=== PATIENT | male | born 1970 | race American Indian/Alaskan Native ===

== ENCOUNTER 2018-02-02 17:04 | Emergency (ER) | payer OTHER ==
[~2018-02-02] VITALS: Ht 180.3 cm; Wt 150.8 kg
[2018-02-02 17:17] VITALS: BP 144/56
[2018-02-02 21:10] LABS: ALBUMIN 3.6 G/DL (3.4-5.0); ANION GAP 12 (8-16); BLOOD UREA NITROGEN 20 MG/DL (7-18); BUN/CREATININE RATIO 22.7 (5.4-32.0); CALCIUM 8.5 MG/DL (8.5-10.1); CHLORIDE 108 MMOL/L (99-107); CREATININE 0.88 MG/DL (0.60-1.10); GLUCOSE 93 MG/DL (70-104); POTASSIUM 4.1 MMOL/L (3.5-5.1); SODIUM 145 MMOL/L (135-145); TOTAL CARBON DIOXIDE 24.8 MMOL/L (24-32); eGFR > 90 ML/MIN
[2018-02-02] MEDS ORDERED: COLC1TAB2 PO (21:47)
== END 2018-02-02 21:59 | disposition home or self-care (01) ==
LOC: ER 17:05
DX: R60.0 Localized edema (principal); M10.9 Gout, unspecified; Z79.899 Other long term (current) drug therapy
CPT/HCPCS: 36415; 80048; 84550; 93971; 99285

== ENCOUNTER 2024-10-24 08:41 | Day surgery (SDC) | payer MEDICAID ==
[2024-10-22 14:44] LABS: BASOPHILS # (AUTO) 0.1 X10'3 (0-0.2); BASOPHILS % (AUTO) 0.7 % (0-1); EOSINOPHILS # (AUTO) 0.2 X10'3 (0-0.9); EOSINOPHILS % (AUTO) 3.2 % (0-6); LYMPHOCYTES # (AUTO) 1.8 X10'3 (1.1-4.8); LYMPHOCYTES % (AUTO) 24.4 % (21-51); MEAN CORPUSCULAR HEMOGLOBIN 32.6 PG (27.0-31.0); MEAN CORPUSCULAR HGB CONC 34.1 g/dL (33.0-36.5); MEAN CORPUSCULAR VOLUME 95.7 FL (78-98); MONOCYTES # (AUTO) 0.6 X10'3 (0-0.9); MONOCYTES % (AUTO) 7.8 % (2-12); NEUTROPHILS # (AUTO) 4.6 X10'3 (1.8-7.7); NEUTROPHILS % (AUTO) 63.9 % (42-75); PRE OP HEMATOCRIT 43.6 % (42.0-52.0); PRE OP HEMOGLOBIN 14.8 g/dL (14.0-17.9); PRE OP PLATELET COUNT 186 X10'3 (140-440); PRE OP WHITE BLOOD COUNT 7.2 10'3 (4.8-10.8); RED BLOOD COUNT 4.55 X10'6 (4.70-6.10); RED CELL DISTRIBUTION WIDTH 13.5 % (11.5-14.5)
[2024-10-22 15:15] LABS: ALBUMIN 3.8 G/DL (3.4-5.0); ALKALINE PHOSPHATASE 91 IU/L (46-116); BLOOD UREA NITROGEN 21 MG/DL (7-18); BUN/CREATININE RATIO 31.3 (10.0-20.0); CALCIUM 8.7 MG/DL (8.5-10.1); CHLORIDE 108 MMOL/L (99-107); CREATININE 0.67 MG/DL (0.60-1.10); PRE OP ALT 47 U/L (30-65); PRE OP ANION GAP 7 (8-16); PRE OP AST 31 U/L (10-37); PRE OP BILIRUB, TOTAL 0.5 MG/DL (0.0-1.0); PRE OP GLUCOSE 102 MG/DL (70-104); PRE OP POTASSIUM 4.2 MMOL/L (3.4-5.1); PRE OP SODIUM 142 MMOL/L (135-145); TOTAL CARBON DIOXIDE 27.1 MMOL/L (24-32); TOTAL PROTEIN 7.7 G/DL (6.4-8.2); eGFR > 90 ML/MIN
[~2024-10-24] VITALS: Ht 180.3 cm; Wt 142.1 kg
[2024-10-24] VITALS (15 sets, daily range): BP systolic 109–161; BP diastolic 66–113; PULSE 66–92; RESP 12–19; TEMP 96.7; O2SAT 90–96
[2024-10-24] MEDS: CEFAZOLIN 3GM/DEXTROSE 150mL 150 ML IV ONE (05:30)
[~2024-10-24 08:41] MED LIST: ACET-1008 PO; DOXY-224 PO; ERGO400C PO; IBUP-2417 PO
[2024-10-24] MEDS: famotidine 20mg tablet PO ONE (10:21)
[2024-10-24] MEDS: ringers solution, lacted 1,000 ML IV SCH (10:22)
[2024-10-24] MEDS ORDERED: BUPIVAcaine 2.5mg/ml inj 50ml vial (contains preservative) ONE (10:30)
[2024-10-24] MEDS ORDERED: LIDOcaine 1% 30ml preserv. free vial ONE (10:30)
[2024-10-24] MEDS ORDERED: BUPIVAcaine/PF 2.5mg/ml (0.25%) 10ml vial ONE ×2 (10:30→10:32)
[2024-10-24] MEDS ORDERED: BUPIVACAINE liposomal/PF 13.3 MG/ML 10mL vial IM ONE (10:31)
[2024-10-24] MEDS ORDERED: sevoflurane 250ml liquid IH ONE (12:05)
[2024-10-24] MEDS ORDERED: labetalol 20mg/4ml (5mg/ml) syringe IV PRN (12:15)
[2024-10-24] MEDS ORDERED: meperidine/PF 25mg/ml syringe IV PRN (12:15)
[2024-10-24] MEDS ORDERED: midazolam 1 mg/ML 2ml injection ONE (12:15)
[2024-10-24] MEDS ORDERED: morphine 2 MG/ML inj. syringe IV PRN (12:15)
[2024-10-24] MEDS ORDERED: ondansetron/PF 4mg/2ml inj IV PRN (12:15)
[2024-10-24] MEDS ORDERED: hydrALAZINE 20mg/ml inj. IV PRN (12:15)
[2024-10-24] MEDS ORDERED: morphine 4 MG/ML inj SYRINge IV PRN (12:15)
[2024-10-24] MEDS ORDERED: proCHLORperazine 10 MG/2 ml inj IV PRN (12:15)
[2024-10-24] MEDS ORDERED: meperidine/PF 100mg/ml syringe IV PRN (12:15)
[2024-10-24] MEDS ORDERED: ringers solution, lacted 1,000 ML IV SCH (12:15)
[2024-10-24] MEDS ORDERED: fentaNYL /PF 50mcg/ml 5ml ampule ONE (12:17)
[2024-10-24] MEDS ORDERED: LIDOcaine 2% (20mg/ml) 5ml vial ONE (12:22)
[2024-10-24] MEDS ORDERED: propofol inj 20 ML IV ONE ×2 (12:22)
[2024-10-24] MEDS ORDERED: rocuronium 10mg/ml inj IV ONE (12:22)
[2024-10-24] MEDS ORDERED: dexamethasone sod phosphate 4mg/ml inj. ONE (12:38)
[2024-10-24] MEDS ORDERED: ondansetron/PF 4mg/2ml inj ONE (12:38)
[2024-10-24] MEDS: BUPIVAcaine/PF 2.5 mg/ml (0.25%) 30ml vial IJ ONE (13:14)
[2024-10-24] MEDS ORDERED: bacitracin 15gm ointment TP ONE (13:32)
[2024-10-24] MEDS ORDERED: ePHEDrine 50MG/ML INJ. ONE (13:39)
[2024-10-24] MEDS ORDERED: 0.9 % SODIUM CHLORIDE 10 ML VIAL ONE (13:39)
[2024-10-24] MEDS ORDERED: neostigmine methylsulfate 1 MG/ML 10ml vial ONE (14:05)
[2024-10-24] MEDS ORDERED: glycopyrrolate 0.2mg/ml inj ONE (14:05)
[2024-10-24] MEDS: HYDROmorphone/PF 0.2 MG/ML SYRINGE IV PRN ×2 (14:38→14:59)
[2024-10-24] MEDS: acetaminophen 1,000mg/100ml IV 100 ML IV PRN (14:42)
[2024-10-24] MEDS: oxyCODONE/APAP 10/325mg tablet PO PRN (15:26)
== END 2024-10-24 16:50 | disposition home or self-care (01) ==
LOC: PRE-OP 08:41
PROVIDERS: ATTEND Surgery
DX: K42.0 Umbilical hernia with obstruction, without gangrene (principal); G89.18 Other acute postprocedural pain; Z79.899 Other long term (current) drug therapy; M19.90 Unspecified osteoarthritis, unspecified site; Z96.642 Presence of left artificial hip joint
CPT/HCPCS: 36415; 49594; 64488; 80053; 82948; 85025; 93005; C1713; C1781; J0131; J0666; J1100; J1171; J2003; J2175; J2250; J2405; J2704; J2710; J3010; J3490; J7030; J7120; Z7506; Z7508; Z7512; A4215; A4618